=== PATIENT | female | born 1970 | race Caucasian/White ===

== ENCOUNTER 2017-05-29 17:16 | Emergency (ER) | payer OTHER ==
[~2017-05-29] VITALS: Ht 154.9 cm; Wt 101.5 kg
[2017-05-29 17:22] VITALS: Ht 154.9 cm; Wt 101.5 kg
[2017-05-29] MEDS ORDERED: DIPHENHYDRAMINE 50 MG INJ IV STA (18:03)
[2017-05-29] MEDS ORDERED: METOCLOPRAMIDE 10 MG INJ IV STA (18:03)
[2017-05-29] MEDS ORDERED: SOD CHLORIDE 0.9% 1,000 ML IV STA (18:03)
[2017-05-29 18:32] LABS: ADD SCAN DIFF NO
[2017-05-29 18:35] LABS: BASOPHILS % 0.5 % (0.0-2.0); EOSINOPHILS # 0.1 10^3/ul (0.0-0.5); EOSINOPHILS % 1.6 % (0.0-7.0); HEMATOCRIT 35.8 % (37.0-47.0); HEMOGLOBIN 11.8 g/dl (12.0-16.0); LYMPHOCYTES # 3.4 10^3/ul (0.8-2.9); LYMPHOCYTES % 46.9 % (15.0-51.0); MEAN CORPUSCULAR HEMOGLOBIN 28.6 pg (29.0-33.0); MEAN CORPUSCULAR VOLUME 86.9 fl (82.0-101.0); MEAN PLATELET VOLUME 11.7 fl (7.4-10.4); MONOCYTE # 0.6 10^3/ul (0.3-0.9); MONOCYTES % 8.5 % (0.0-11.0); NEUTROPHIL # 3.1 10^3/ul (1.6-7.5); NEUTROPHILS % 42.4 % (39.0-77.0); PLATELET COUNT 236 10^3/UL (140-415); RED BLOOD COUNT 4.12 10^6/ul (4.20-5.40); RED CELL DISTRIBUTION WIDTH 12.8 % (11.5-14.5); WHITE BLOOD COUNT 7.3 10^3/ul (4.8-10.8)
--- NOTE | 2017-05-29 18:40 | RADRPT ---
PROCEDURE: CT head CLINICAL INDICATION: Headaches TECHNIQUE: Contiguous 2.5 mm axial images were obtained from the vertex to the skull base. No int ravenous contrast was administered. The calculated dose length product (DLP) = 720.23 mGy-cm. The CTDlvol = 41.44 mGy. One or more of the following dose reduction techniques were used: Automated e xposure control, adjustment of the mA and or KV according to patient size, or use of iterative recon struction technique. COMPARISON: None FINDINGS: There is no evidence of acute intracranial hemorrhage or acute territorial infarct. No mass or mass effect is seen on this noncontrast study. The ventricles and cisterns are normal in size and confi guration. The lake-white matter differentiation is within normal limits. The visualized paranasal sinuses are normally aerated. The bony calvarium is unremarkable IMPRESSION: Unremarkable unenhanced CT of the brain RPTAT: HH .Jose R Chung MD, MD Date Time Electronically viewed and signed by .Jose R Chung MD, on 05/29/2017 18:40 .W/
--- NOTE | 2017-05-29 18:40 | ERD ---
ER Documentation Chief Complaint Date/Time DATE: 05/29/17 TIME: 18:38 Chief Complaint RT SIDE FACIAL NUMBNESS SINCE MORNING , LT SIDE FACE PAIN X 2 DAYS HPI This is a 47-year-old female with daily headaches for many years who presents the emergency room with left-sided facial pain. The patient is a somewhat difficult historian. However she describes nontraumatic pain to the entirety of the left side of her face that is worse she has some discomfort to the TMJ when she opens and closes her jaw. She also notes occasional numbness to the tongue. She denies any right-sided facial numbness though this was noted at triage. Potential language barrier or miscommunication. She denies chest pain or shortness of breath, she describes occasional paresthesias to bilateral upper hands. No chest pain or shortness of breath. She has not had CT imaging of the brain despite her daily headaches. ROS All systems reviewed and are negative except as per history of present illness. Medications Home Meds Active Scripts Prednisone* (Prednisone*) 20 Mg Tab, 60 MG PO DAILY for 7 Days, TAB Prov:NELLY BARLOW MD 05/29/17 Allergies Allergies: Coded Allergies: No Known Allergy (Unverified , 05/29/17) PMhx/Soc History of Surgery: Yes (lumbar sx) Anesthesia Reaction: No Hx Neurological Disorder: No Hx Respiratory Disorders: No Hx Cardiac Disorders: No Hx Psychiatric Problems: No Hx Miscellaneous Medical Probl: No Hx Alcohol Use: No Hx Substance Use: No Hx Tobacco Use: No Smoking Status: Never smoker FmHx Family History: No diabetes Physical Exam Vitals Vital Signs Date Time Temp Pulse Resp B/P Pulse Ox O2 Delivery O2 Flow Rate FiO2 05/29/17 17:22 98.0 86 18 183/96 99 Physical Exam General: Well developed, well nourished, no acute distress Head: Normocephalic, atraumatic. Eyes: Pupils equally reactive, EOM intact ENT: Moist mucous membranes, soft submental space, mild tenderness along the left TMJ Neck: Supple, no lymphadenopathy, no meningismus Respiratory: Lungs clear bilaterally, no distress Cardiovascular: RRR, no murmurs, rubs, or gallops Abdominal: Soft, non-tender, non-distended, no peritoneal signs : Deferred MSK: No edema, no unilateral swelling, 5/5 strength Neurologic: Alert and oriented, moving all extremities, normal speech, no focal weakness, no cerebellar signs Skin: No rash Psych: Normal mood Result Diagram: 05/29/17181105/29/171811 Results 24 hrs Laboratory Tests Test 05/29/17 18:12 White Blood Count 7.310^3/ul Red Blood Count 4.1210^6/ul Hemoglobin 11.8g/dl Hematocrit 35.8% Mean Corpuscular Volume 86.9fl Mean Corpuscular Hemoglobin 28.6pg Mean Corpuscular Hemoglobin Concent 33.0g/dl Red Cell Distribution Width 12.8% Platelet Count 33527^3/UL Mean Platelet Volume 11.7fl Neutrophils % 42.4% Lymphocytes % 46.9% Monocytes % 8.5% Eosinophils % 1.6% Basophils % 0.5% Nucleated Red Blood Cells % 0.0/100WBC Neutrophils # 3.110^3/ul Lymphocytes # 3.410^3/ul Monocytes # 0.610^3/ul Eosinophils # 0.110^3/ul Basophils # 0.010^3/ul Nucleated Red Blood Cells # 0.010^3/ul Sodium Level 137mmol/L Potassium Level 4.1mmol/L Chloride Level 104mmol/L Carbon Dioxide Level 26mmol/L Anion Gap 11 Blood Urea Nitrogen 11mg/dl Creatinine 0.64mg/dl Glucose Level 92mg/dl Calcium Level 9.0mg/dl Serum HCG, Qualitative NEGATIVE Current Medications Medications (Trade) Dose Ordered Sig/Parish Route PRN Reason Start Time Stop Time Status Last Admin Dose Admin Sodium Chloride (NS) 1,000 ml @ 1,000 mls/hr Q1H STAT IV 05/29/17 18:03 05/29/17 19:02 DC 05/29/17 18:17 Metoclopramide HCl (Reglan) 10 mg ONCE STAT IV 05/29/17 18:03 05/29/17 18:06 DC 05/29/17 18:16 Diphenhydramine HCl (Benadryl) 25 mg ONCE STAT IV 05/29/17 18:03 05/29/17 18:06 DC 05/29/17 18:17 Procedures/MDM EKG, MONITORS, & DIAGNOSTIC IMAGING: CT brain: IMPRESSION: Unremarkable unenhanced CT of the brain RPTAT: LAB INTERPRETATION: no acute process MEDICAL DECISION MAKING: The patient presents with daily headaches for approximately 1-2 years. Today she is describing atraumatic pain in the left side of the face, paresthesias diffusely to her tongue and bilateral upper extremities that are intermittent. Her neurologic exam is normal. Unclear etiology of the patient's symptoms. She is too young for giant cell arteritis, she does not seem to exhibit any vision changes that would be concerning for pseudotumor cerebri. The patient would benefit from CT of the brain to rule out mass given chronicity of headaches. Consider possible early Pennington's palsy the patient does not have any evidence clinically of a facial palsy currently. Given unilateral nature, consideration for migraine headache would be possible. The patient may benefit from IV fluids Reglan and Benadryl. ER COURSE: The family has arrived. After further investigation, evaluation and physical exam it appears that the patient's left side of the face is somewhat similar to the right side. This is possibly consistent with Pennington's palsy. There seems to have been an interval change. On repeat examination the patient seems to have slight decreased motor function to the left side of the face with inclusion of the forehead. 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 The patient has a low-grade house Brackmann score therefore antivirals are not indicated. A short course of prednisone 60 mg would be reasonable. I discussed expectant management with the patient. Again, no alternative symptoms I would suggest central process. I kept the patient and/or family informed of laboratory and diagnostic imaging results throughout the emergency room course. DISPOSITION PLAN: We discussed follow up with the patient's primary care doctor within 24 to 48 hours as needed. We also discussed return to the emergency room for worsening symptoms or worsening condition. Outpatient referral: [None required] Discharge Medications: Prednisone 60 mg daily for 7 days Departure Diagnosis: Primary Impression: Pennington's palsy Condition: Stable NELLY BARLOW MD May 29, 2017 18:40
[2017-05-29 19:02] LABS: CREATININE 0.64 mg/dl (0.44-1.00); POTASSIUM 4.1 mmol/L (3.5-5.1)
[2017-05-29] MEDS ORDERED: PRED20TA PO (19:23)
[2017-05-29 20:03] VITALS: BP 143/88; PULSE 68; RESP 17; TEMP 98.2
== END 2017-05-29 20:05 | disposition home or self-care (01) ==
LOC: E/R 17:16
DX: G51.0 Bell's palsy (principal)
CPT/HCPCS: 36415; 70450; 80048; 84703; 85025; 96374; 96375; J1200; J2765; J7030; Z7502